=== PATIENT | female | born 1995 | race Caucasian/White ===

== ENCOUNTER 2021-10-20 05:10 | Inpatient (IN) | payer OTHER ==
[~2021-10-20 05:10] MED LIST: IBUPROFEN600 MG PO
[2021-10-20 07:08] LABS: HEMOGLOBIN 10.4 gm/dl (12.3-15.3); RED BLOOD COUNT 3.9 M/UL (4.00-5.10); WHITE BLOOD COUNT 15.8 K/UL (4.5-11.0)
[2021-10-21 06:24] LABS: HEMOGLOBIN 10.4 gm/dl (12.3-15.3)
[2021-10-21] MEDS ORDERED: IBUPROFEN600 MG PO (09:34)
[2021-10-21] MEDS ORDERED: HYDROCODON-ACE1 EAC4 PO (09:34)
[2021-10-21] MEDS ORDERED: DOCUSATE SODIU100 MG PO (09:34)
== END 2021-10-22 22:00 | disposition home or self-care (01) | DRG 807 ==
LOC: OB 05:10
PROVIDERS: ADMIT Obstetrics & Gynecology
PROC: 4A1HXCZ Monitoring of Products of Conception, Cardiac Rate, External Approach (ICD-10-PCS; 2021-10-20)
PROC: 10E0XZZ Delivery of Products of Conception, External Approach (ICD-10-PCS; principal; 2021-10-21)
PROC: 10907ZC Drainage of Amniotic Fluid, Therapeutic from Products of Conception, Via Natural or Artificial Opening (ICD-10-PCS; 2021-10-21)
PROC: 0HQ9XZZ Repair Perineum Skin, External Approach (ICD-10-PCS; 2021-10-21)
PROC: 3E033VJ Introduction of Other Hormone into Peripheral Vein, Percutaneous Approach (ICD-10-PCS; 2021-10-21)
DX: O99.334 Smoking (tobacco) complicating childbirth (principal); Z37.0 Single live birth; Z3A.39 39 weeks gestation of pregnancy; Z20.822 Contact with and (suspected) exposure to COVID-19; F17.210 Nicotine dependence, cigarettes, uncomplicated; O70.0 First degree perineal laceration during delivery
CPT/HCPCS: 36415; 82800; 85014; 85018; 85025; 90471; 90715; 94760; J2590; J3430